=== PATIENT | female | born 1945 | race Caucasian/White ===

== ENCOUNTER 2021-05-03 07:43 | Day surgery (SDC) | payer OTHER, BC ==
--- NOTE | 2021-04-30 12:47 | RAD REPORT ---
EXAM DESCRIPTION: Erick Single View04/30/2021 12:28 pm CLINICAL HISTORY: Preop for cyst removal. Atrial fibrillation COMPARISON: none FINDINGS: The lungs appear clear of acute infiltrate. The heart is normal size IMPRESSION: No acute abnormalities displayed
[2021-04-30 12:53] LABS: Potassium 4.3 mmol/L (3.5-5.1)
[2021-04-30 14:32] LABS: Absolute Lymphocytes (CBC) 1.7 K/uL (0.7-4.9); Basophils % 0.6 % (0-1.3); Hematocrit 38.3 % (36.0-45.0); Lymphocytes % 17.5 % (15.3-44.8); MPV 9.1 fL (7.6-11.3); RBC Red Blood Cell Count 4.17 M/uL (3.86-4.86)
--- NOTE | 2021-05-02 10:44 | EKG ---
Test Date: 2021-04-30 Test Time: 11:14:15 Motor Room Controller: LISS MEASUREMENT RESULTS: Intervals: Rate: 52 KS: 166 QRSD: 82 QT: 424 QTc: 394 Carey: P: 64 KS: 166 QRS: 8 T: 15 INTERPRETIVE STATEMENTS: Sinus bradycardia Otherwise normal ECG No previous ECG available for comparison Electronically Signed On 05-02-21 10:40:19 CDT by Jesse Ramirez
[2021-05-03] MEDS ORDERED: Ringers Lactate 1,000 ML IV ONE (08:28)
[2021-05-03] MEDS ORDERED: CEFAZOLIN/SWI 1gm 1 GM/10 ML SYR ONE (08:28)
[2021-05-03] MEDS ORDERED: ONDANSETRON 4 MG/2 ML VIAL ONE (09:29)
[2021-05-03] MEDS ORDERED: KETOROLAC 30 MG/ML INJ ONE (09:29)
[2021-05-03] MEDS ORDERED: LIDOCAINE 2% MPF 5 ML VIAL ONE (09:29)
[2021-05-03] MEDS ORDERED: propofoL 200 MG/20 ML VIAL IV ONE (09:29)
[2021-05-03] MEDS ORDERED: dexAMETHasone 4 MG/ML VIAL ONE (09:30)
[2021-05-03] MEDS ORDERED: MIDAZOLAM HCL 2 MG/2 ML INJ ONE (09:40)
[2021-05-03] MEDS ORDERED: FENTANYL CITR 100 MCG/2 ML ONE (09:40)
[2021-05-03] MEDS ORDERED: BUPIVACAINE 0.5% PF 10 ML VIAL ONE ×2 (09:41→10:46)
[2021-05-03] MEDS ORDERED: EPHEDRINE SULF 50 MG/ML VIAL ONE (10:27)
--- NOTE | 2021-05-03 10:28 | P.BOP ---
Preoperative diagnosis: tender pilonidal cyst Postoperative diagnosis: same Primary procedure: Wide excision of tender pilonidal cyst [id number] Estimated blood loss: <10cc Specimen: mass Findings: as above Anesthesia: General Complications: None Transferred to: Recovery Room Condition: Good
[2021-05-03] MEDS ORDERED: NEOSTIGMINE 1 MG/ML -5 ML ONE (10:43)
[2021-05-03] MEDS ORDERED: GLYCOPYRROLATE 0.2 MG/ML SYR ONE (10:43)
--- NOTE | 2021-05-03 11:04 | DS ---
Diagnosis: Tender pilonidal cyst. Procedure: Wide excision of pilonidal cyst. Disposition: Home. Activity: As tolerated. No heavy lifting. Plan: Follow up in my office in 1 week. Call for appointment at [phone]. Keep area dry for 48 kirk rs, then may remove outer dressings and shower. Put triple antibiotics over the area, put dressings on top. The patient tolerated the procedure well. Medications: Include Tylenol No. 3 q.4 hours p.r.n. pain, Cipro 500 p.o. q.12. MIRLANDE/RUBEN Voice ID: [id number] Report ID: [id number]
--- NOTE | 2021-05-03 11:10 | OP ---
Date of Procedure: 05/03/2021 Surgeon: Jarad Rosa MD Preoperative Diagnosis: Tender pilonidal cyst. Postoperative Diagnosis: Tender pilonidal cyst. Procedure: Wide excision of tender pilonidal cyst, 4 x 4 x 2 cm. Estimated Blood Loss: Less than 10 mL. Anesthesia: General plus local. Finding: Pilonidal cyst. There is a small opening coming below the previous incision she has. Indication: This is the case of a 76-year-old patient, comes to us with a history of tender pilonida l cyst. She has an episode several years ago where she has excision of the area. This is a new one, came below that previous incision, small opening coming from the area. The benefits, alternatives, and risks of wide excision of the area were fully explained, which include, but not limited to infect ion, bleeding, damage to adjacent structures, anesthesia complication, recurrence, MA, and even . She also understands this may not relieve any symptoms. She might need more than one surgical int ervention. She understood, signed a consent. Procedure In Detail: The patient was brought to the operating room, placed in supine position. Anes thesia was done without complication. The area of concern was previously marked by me and the patien t in the holding room. The patient was placed in prone position with proper protection. A time-out was called. We proceeded to probe the small opening she has some from the pilonidal cyst and then cardona ve an proceeded to inject local anesthetic and a wide resection of the area after the area was prepped and draped in usual sterile fashion. We went all the way down to coccyx bone. The mass was completely excised. The area was irrigated and then we proceeded to close this in deep layers a t least 3 layers of 3-0 chromic and then the 3-0 nylon on the suture mattress closure. The patient t olerated the procedure well. Sponge count and instrument counts correct. The patient was sent to [facility] in stable condition. MIRLANDE/RUBEN Voice ID: [id number] Report ID: [id number]
[2021-05-03 12:49] VITALS: BP 142/62; TEMP 96.7; O2SAT 95
== END 2021-05-03 12:00 | disposition home or self-care (01) ==
LOC: OR 07:43
PROVIDERS: ATTEND Surgery
PROC: 0JB90ZZ Excision of Buttock Subcutaneous Tissue and Fascia, Open Approach (ICD-10-PCS; principal; 2021-05-03 09:45)
DX: L05.91 Pilonidal cyst without abscess (principal); Z20.822 Contact with and (suspected) exposure to COVID-19
CPT/HCPCS: 93005; 85025; 80048; 36415; 88304; 71045; 11770; U0003; J2704; J1100; J2250; J3010; J2710; J0690; J7120; J2405